=== PATIENT | female | born 1965 | race American Indian/Alaskan Native ===

== ENCOUNTER 2017-12-16 11:53 | Outpatient (CLI) | payer OTHER ==
--- NOTE | 2017-12-16 15:34 | Mammography Report ---
BILATERAL DIGITAL SCREENING MAMMOGRAM with CAD : 12/16/17 11:53:00 CLINICAL: Routine screening. COMPARISON:01/03/15 and 11/08/12 FINDINGS: The breasts are heterogeneously dense, which may obscure small masses. No mass, architectural distortion or suspicious calcifications. IMPRESSION: No mammographic evidence of malignancy. BI-RADS CATEGORY: 2 -- Benign RECOMMENDATION: Routine mammographic screening in one year. COMMENT: Patient follow-up letters are generated by our [employer] application.
== END 2017-12-16 11:54 | disposition home or self-care (01) ==
LOC: MAMMO 11:53
PROVIDERS: ATTEND Family Medicine
DX: Z12.31 Encounter for screening mammogram for malignant neoplasm of breast (principal)
CPT/HCPCS: 77067

== ENCOUNTER 2020-02-11 08:06 | Emergency (ER) | payer OTHER ==
--- NOTE | 2020-02-11 08:40 | Emergency Department Report ---
HPI - General Chief Complaint: Upper Respiratory Infection Time Seen by Provider: 02/11/20 08:15 - HPI HPI: This is a 54-year-old female presents to the emergency department from home with complaint of a 3-day history of intermittent fever and chills, 1 day history of a generalized headache, and a lingering cough that has been going on since July, almost 6 months. Patient says that she gets a tickle in the back of her throat which causes her to have to cough. She denies any chest pain, shortness of breath, nausea, vomiting or diaphoresis. The patient took some Tylenol last night for her headache, which was 10 out of 10 at that time, and it is currently 4 out of 10 in intensity. She denies any vision change, slurred speech, weakness, numbness or paresthesias, or any other neurological deficits. Patient has a history of myasthenia gravis. No recent travel or sick contacts at home. No known exposure to anyone with Covid 19. The patient had a negative COVID-19 test yesterday. ED Past Medical Hx - Past Medical History Additional medical history: myasthenia gravis - Surgical History Additional Surgical History: breast lymphnode Left side 20 yrs ago - Social History Smoking Status: Never Smoker Substance Use Type: None - Medications Home Medications: Home Medications Medication Instructions Recorded Confirmed Last Taken Type Prednisone 15 mg PO Q48HR 03/24/13 02/05/16 02/04/16 History Pyridostigmine [Mestinon] 120 mg PO Q6HR 03/24/13 02/05/16 02/04/16 History HYDROcodone/APAP 7.5-325 [[place] 1 each PO Q8HR PRN #10 tablet 02/05/16 Unknown Rx 7.5-325 mg TAB] Ibuprofen [Motrin] 800 mg PO Q8HR PRN #14 tablet 02/05/16 Unknown Rx Acetaminophen [Acetaminophen TAB] 650 mg PO Q6HR PRN #20 tablet 02/11/20 Unknown Rx Albuterol Mdi (or & Nicu Only) 2 puff IH QID PRN #8.5 gram 02/11/20 Unknown Rx [ProAir HFA Inhaler] Benzonatate [Tessalon Perles] 100 mg PO Q8HR PRN #20 capsule 02/11/20 Unknown Rx ED Review of Systems ROS: Stated complaint: FEVER/CHILLS/COUGH Other details as noted in HPI Comment: All other systems reviewed and negative Constitutional: chills, fever Eyes: denies: eye pain, vision change ENT: denies: ear pain, throat pain Respiratory: cough. denies: shortness of breath Cardiovascular: denies: chest pain, palpitations Gastrointestinal: denies: abdominal pain, vomiting Genitourinary: denies: dysuria, discharge Musculoskeletal: denies: joint swelling, arthralgia Skin: denies: rash, lesions Neurological: headache. denies: weakness, numbness, paresthesias Physical Exam - Physical Exam Vital Signs: Vital Signs 02/11/20 08:10 Temperature 102.9 F H Pulse Rate 131 H Respiratory 20 Rate Blood Pressure 118/78 O2 Sat by Pulse 96 Oximetry Physical Exam: GENERAL: The patient is well-developed well-nourished. HENT: Normocephalic. Atraumatic. Patient has moist mucous membranes. EYES: Extraocular motions are intact. NECK: Supple. Trachea is midline. CHEST/LUNGS: Mild tachypnea but no accessory muscle use. No cough heard during examination. There is no respiratory distress noted. HEART/CARDIOVASCULAR: There is mild tachycardia. ABDOMEN: Abdomen is soft. There is no abdominal distention. SKIN: Skin is warm and dry. NEURO: The patient is awake, alert, and oriented. The patient is cooperative. The patient has no focal neurologic deficits. Normal speech. MUSCULOSKELETAL: There is no tenderness or deformity. There is no limitation range of motion. ED Course Vital Signs 02/11/20 08:10 Temperature 102.9 F H Pulse Rate 131 H Respiratory 20 Rate Blood Pressure 118/78 O2 Sat by Pulse 96 Oximetry ED Medical Decision Making - Lab Data Result diagrams: 02/11/20 08:51 02/11/20 08:44 - EKG Data -: EKG Interpreted by Me EKG shows normal: sinus rhythm, axis, intervals, QRS complexes, ST-T waves Rate: tachycardia (102 bpm) - EKG Data When compared to previous EKG there are: previous EKG unavailable Interpretation: normal EKG - Radiology Data Radiology results: image reviewed interpreted by me: Chest x-ray does not show any acute process. There are no pleural effusions, obvious pneumonia and there is no pneumothorax. No significant cardiomegaly. - Medical Decision Making This patient presents to the emergency department with a complaint of a mild generalized headache, some intermittent fever and chills, and a lingering cough. She presents with tachycardia and a fever with a temperature of almost 103 F. For this reason the patient was made a person under investigation for Covid 19 and was placed in patient isolation and droplet precautions. She was given IV fluid resuscitation and acetaminophen. Chest x-ray did not show any pneumonia, pleural effusions, or any other acute process. Labs were unremarkable including CBC, metabolic panel, troponin and BNP. Patient was reevaluated multiple times over multiple hours and is feeling improved. Headache has resolved. The tachycardia and fever have resolved. The patient appears safe for discharge home at this time. She has been instructed to follow-up with a primary care physician and she was given COVID-19 precautions. The patient was placed in patient isolation and droplet precautions immediately upon arrival to the main emergency department. I wore full PPE gear including a surgical hat, goggles, N95 mask, surgical mask, gown, and double gloves for every encounter. Critical Care Time: No Critical care attestation.: If time is entered above; I have spent that time in minutes in the direct care of this critically ill patient, excluding procedure time. ED Disposition Clinical Impression: Viral syndrome Headache Qualifiers: Headache type: unspecified Headache chronicity pattern: unspecified pattern Intractability: not intractable Qualified Code(s): R51 - Headache Upper respiratory infection Qualifiers: URI type: unspecified URI Qualified Code(s): J06.9 - Acute upper respiratory infection, unspecified Disposition: TO HOME OR SELFCARE Is pt being admited?: No Condition: Stable Instructions: COVID-19, Fever in Adults (ED), Viral Syndrome (ED) Additional Instructions: Please follow-up with your primary care physician in the next few days. Return to the emergency department with any worsening of your symptoms, intractable fever, development of chest pain or shortness of breath, or with any acute distress. You can take Tylenol every 4-6 hours and ibuprofen every 6-8 hours, using the dosing on the back of the bottle, as needed for any fever or discomfort. Your symptoms together appear consistent with a nonspecific viral syndrome. Given the current pandemic, and despite a negative Covid test recently, COVID-19 cannot be ruled out at this time. Please isolate yourself from anyone who is elderly, immunocompromised or chronically ill. Wear a mask in public, but it is preferable that you isolate/self quarantine at home. Prescriptions: Acetaminophen [Acetaminophen TAB] 650 mg PO Q6HR PRN #20 tablet PRN Reason: Fever >101 Albuterol Mdi (or & Nicu Only) [ProAir HFA Inhaler] 2 puff IH QID PRN #8.5 gram PRN Reason: Shortness Of Breath Benzonatate [Tessalon Perles] 100 mg PO Q8HR PRN #20 capsule PRN Reason: Cough Referrals: TACOS CARRILLO MD [Primary Care Provider] - 2-3 Days Time of Disposition: 11:24
[2020-02-11] MEDS ORDERED: ACETAMINOPHEN 500 MG TAB PO ONE (08:46)
[2020-02-11] MEDS ORDERED: SODIUM CHLORIDE 0.9% 1000 ML 1,000 ML IV ONE (08:46)
[2020-02-11 09:02] LABS: Basophils % (Auto) 0.4 % (0.0-1.8); Eosinophils % (Auto) 0.2 % (0.0-4.3); Hematocrit 32.7 % (30.3-42.9); Hemoglobin 11.3 gm/dl (10.1-14.3); Lymphocytes # (Auto) 0.9 K/mm3 (1.2-5.4); Mean Corpuscular HGB Conc 34 % (30-34); Mean Corpuscular Volume 89 fl (79-97); Monocytes # (Auto) 1.2 K/mm3 (0.0-0.8); Monocytes % (Auto) 10.1 % (0.0-7.3); Platelet Count 209 K/mm3 (140-440); Red Blood Count 3.67 M/mm3 (3.65-5.03); Red Cell Distribution Width 13.2 % (13.2-15.2)
--- NOTE | 2020-02-11 09:05 | XRay Report ---
CHEST 1 VIEW INDICATION / CLINICAL INFORMATION: SOB. COMPARISON: None available. FINDINGS: SUPPORT DEVICES: None. HEART / MEDIASTINUM: Postoperative change with scattered surgical clips. No significant abnormality o f the cardiomediastinal silhouette. LUNGS / PLEURA: No significant pulmonary or pleural abnormality. No pneumothorax. ADDITIONAL FINDINGS: Postoperative change of median sternotomy. IMPRESSION: 1. No acute findings. Signer Name: Antoine Chen MD Signed: 02/11/2020 9:01 AM Workstation Name: [id number]
[2020-02-11 09:12] LABS: INR 1.1 (0.87-1.13)
[2020-02-11 09:22] LABS: Alanine Aminotransferase 13 units/L (7-56); Albumin 3.5 g/dL (3.9-5); BUN/Creatinine Ratio 11; Blood Urea Nitrogen 11 mg/dL (7-17); Calcium 9.6 mg/dL (8.4-10.2); Hemolysis Index 6
[2020-02-11 11:49] VITALS: BP 109/69
== END 2020-02-11 11:49 | disposition home or self-care (01) ==
LOC: ED 08:06
DX: J06.9 Acute upper respiratory infection, unspecified (principal); B34.9 Viral infection, unspecified; R51 Headache; Z98.890 Other specified postprocedural states; Z79.1 Long term (current) use of non-steroidal anti-inflammatories (NSAID); Z79.899 Other long term (current) drug therapy
CPT/HCPCS: 36415; 71045; 80053; 83880; 84484; 85025; 85610; 93005; 96360; 96361; 99284; J7030

== ENCOUNTER 2020-09-16 09:21 | Outpatient (CLI) | payer OTHER ==
--- NOTE | 2020-09-16 10:58 | Mammography Report ---
DIGITAL SCREENING MAMMOGRAM WITH CAD, 09/16/2020 INDICATION: Routine screening mammography. TECHNIQUE: Digital bilateral 2D mammography was obtained in the craniocaudal and mediolateral obliq ue projections. This examination was interpreted with the benefit of Computer-Aided Detection analysi s. COMPARISON: 12/16/2017. FINDINGS: Breast Density: The breasts are heterogeneously dense, which may obscure small masses. There is no evidence of dominant mass, suspicious calcifications or architectural distortion in eithe r breast. IMPRESSION: Follow up recommendation: Routine yearly BI-RADS Category 1: Negative. A "normal" or negative report should not discourage follow up or biopsy of a clinically significant f inding. A written summary of these findings will be mailed to the patient. The patient will be entered into a mammography reporting system which will generate a reminder letter for the patient's next appointmen t at the appropriate interval. The [employer] recommends yearly mammograms starting at age 40 and continuing as l tessa as a woman is in good health. Breast MRI is recommended for women with an approximate 20-25% or greater lifetime risk of breast cancer, including women with a strong family history of breast or ova gabrielle cancer or who have been treated for Hodgkin's disease. Signer Name: Derek Berrios MD Signed: 09/16/2020 10:54 AM Workstation Name: [email or web address]
== END 2020-09-16 09:22 | disposition home or self-care (01) ==
LOC: MAMMO 09:21
DX: Z12.31 Encounter for screening mammogram for malignant neoplasm of breast (principal)
CPT/HCPCS: 77067

== ENCOUNTER 2020-12-23 21:38 | Emergency (ER) | payer BC, OTHER ==
[2020-12-23 23:03] VITALS: BP 135/69
[2020-12-23 23:43] LABS: Alanine Aminotransferase 18 units/L (7-56); Albumin 4.4 g/dL (3.9-5); BUN/Creatinine Ratio 18; Blood Urea Nitrogen 16 mg/dL (7-17); Calcium 9.2 mg/dL (8.4-10.2); Hemolysis Index 9
[2020-12-23 23:51] LABS: Basophils # (Auto) 0.1 K/mm3 (0.0-0.1); Basophils % (Auto) 0.9 % (0.0-1.8); Eosinophils % (Auto) 0.2 % (0.0-4.3); Hematocrit 37.5 % (30.3-42.9); Lymphocytes # (Auto) 1.4 K/mm3 (1.2-5.4); Mean Corpuscular HGB Conc 32 % (30-34); Mean Corpuscular Volume 91 fl (79-97); Monocytes # (Auto) 0.7 K/mm3 (0.0-0.8); Monocytes % (Auto) 7.2 % (0.0-7.3); Platelet Count 272 K/mm3 (140-440); Red Blood Count 4.11 M/mm3 (3.65-5.03)
[2020-12-24 00:55] LABS: Bilirubin,Urine NEG (Negative); Blood,Urine MOD (Negative); Color,Urine Yellow (Yellow); Mucus,Urine FEW /HPF; Protein,Urine <15 mg/dL mg/dL (Negative); Urobilinogen,Urine < 2.0 mg/dL (<2.0)
--- NOTE | 2020-12-24 01:14 | Cat Scan Report ---
CT abdomen pelvis w con INDICATION / CLINICAL INFORMATION: R.L.Q. Abdominal Pain. TECHNIQUE: Axial CT images were obtained through the abdomen and pelvis after IV contrast. All CT sc ans at this location are performed using CT dose reduction for ALARA by means of automated exposure c ontrol. COMPARISON: None available. FINDINGS: LOWER CHEST: No significant abnormality LIVER: Bilobar hepatic cysts. GALLBLADDER/BILIARY TREE: No significant abnormality PANCREAS: No significant abnormality SPLEEN: No significant abnormality ADRENALS: No significant abnormality KIDNEYS / URETER: No significant abnormality URINARY BLADDER: No significant abnormality REPRODUCTIVE ORGANS: No significant abnormality STOMACH / BOWEL:Small to moderate hiatal hernia. Colonic diverticulosis without evidence of diverticu litis. Small bowel is normal in caliber. The appendix is normal in caliber. LYMPH NODES: No significant adenopathy. VASCULATURE: No significant abnormality. OTHER: No free air, free fluid, or focal fluid collection is identified. SKELETAL SYSTEM: No acute osseous findings. IMPRESSION: 1. No acute abnormality. Normal appendix. 2. Small to moderate hiatal hernia. 3. Colonic diverticula without evidence of diverticulitis. Signer Name: José Perez MD Signed: 12/24/2020 1:09 AM Workstation Name: [id number]
--- NOTE | 2020-12-24 01:33 | Emergency Department Report ---
ED General Adult HPI - General Chief complaint: Abdominal Pain Stated complaint: PAIN IN LOWER STOMACH Time Seen by Provider: 12/24/20 00:11 Source: patient Mode of arrival: Ambulatory Limitations: No Limitations - History of Present Illness Initial comments: 55-year-old female patient with history of myasthenia gravis presents to the emergency department with complaints of intermittent right lower quadrant abdominal pain for approximately 3 months. Patient was sent to the emergency department for emergent CT scan by her primary care provider due to concern for appendicitis. Patient has been taking Tylenol and Motrin for her abdominal pain. Last colonoscopy was 10 years ago. No history of prior abdominal surgeries. Denies fever, chills, nausea, vomiting, diarrhea, constipation, black/bloody stools, urinary symptoms. Denies all other complaints at this time. Severity scale (0 -10): 3 - Related Data Home Medications Medication Instructions Recorded Confirmed Last Taken Prednisone 15 mg PO Q48HR 03/24/13 02/05/16 02/04/16 Pyridostigmine [Mestinon] 120 mg PO Q6HR 03/24/13 02/05/16 02/04/16 Previous Rx's Medication Instructions Recorded Last Taken Type HYDROcodone/APAP 7.5-325 [[place] 1 each PO Q8HR PRN #10 tablet 02/05/16 Unknown Rx 7.5-325 mg TAB] Ibuprofen [Motrin] 800 mg PO Q8HR PRN #14 tablet 02/05/16 Unknown Rx Acetaminophen [Acetaminophen TAB] 650 mg PO Q6HR PRN #20 tablet 02/11/20 Unknown Rx Albuterol Mdi (or & Nicu Only) 2 puff IH QID PRN #8.5 gram 02/11/20 Unknown Rx [ProAir HFA Inhaler] Benzonatate [Tessalon Perles] 100 mg PO Q8HR PRN #20 capsule 02/11/20 Unknown Rx Dicyclomine [Bentyl] 20 mg PO QID #20 tablet 12/24/20 Unknown Rx Allergies Allergy/AdvReac Type Severity Reaction Status Date / Time No Known Allergies Allergy Verified 02/11/20 08:07 ED Review of Systems ROS: Stated complaint: PAIN IN LOWER STOMACH Other details as noted in HPI Other: GENERAL: Negative for fever, chills, weight change, anorexia, fatigue. ENT: Negative for ear pain, difficulty hearing, sore throat, nasal congestion, epistaxis. CARDIOVASCULAR: Negative for chest pain, palpitations, lower extremity swelling. PULMONARY: Negative for cough, dyspnea, wheezing, orthopnea, cyanosis. GASTROINTESTINAL: Positive for abdominal pain. MUSCULOSKELETAL: Negative for joint pain, joint swelling, myalgias, back pain, n roxane pain. NEUROLOGICAL: Negative for headache, seizure, syncope, paresthesias, weakness. INTEGUMENTARY: Negative for erythema, rash, diaphoresis, laceration, ecchymosis. HEMATOLOGICAL: Negative for hemoptysis, hematemesis, hematochezia, hematuria. PSYCHIATRIC: Negative for hallucinations, suicidal ideation, homicidal ideation, anxiety, depression. ED Past Medical Hx - Past Medical History Previous Medical History?: Yes Additional medical history: myasthenia gravis - Surgical History Past Surgical History?: Yes Additional Surgical History: Left knee. thyamus gland removal. breast lymphnode Left side 20 yrs ago - Social History Smoking Status: Never Smoker Substance Use Type: None - Medications Home Medications: Home Medications Medication Instructions Recorded Confirmed Last Taken Type Prednisone 15 mg PO Q48HR 03/24/13 02/05/16 02/04/16 History Pyridostigmine [Mestinon] 120 mg PO Q6HR 03/24/13 02/05/16 02/04/16 History HYDROcodone/APAP 7.5-325 [[place] 1 each PO Q8HR PRN #10 tablet 02/05/16 Unknown Rx 7.5-325 mg TAB] Ibuprofen [Motrin] 800 mg PO Q8HR PRN #14 tablet 02/05/16 Unknown Rx Acetaminophen [Acetaminophen TAB] 650 mg PO Q6HR PRN #20 tablet 02/11/20 Unknown Rx Albuterol Mdi (or & Nicu Only) 2 puff IH QID PRN #8.5 gram 02/11/20 Unknown Rx [ProAir HFA Inhaler] Benzonatate [Tessalon Perles] 100 mg PO Q8HR PRN #20 capsule 02/11/20 Unknown Rx Dicyclomine [Bentyl] 20 mg PO QID #20 tablet 12/24/20 Unknown Rx ED Physical Exam - General Limitations: No Limitations - Other Other exam information: General: Awake and alert. No acute distress. Head: Atraumatic, normocephalic. Eyes: EOMI. Pupils are equal and round. Normal sclera and conjunctiva. ENT: Oral mucosa is moist. Normal pharyngeal exam. Neck: Supple. No lymphadenopathy. Pulmonary: No respiratory distress. Clear to auscultation bilaterally. Cardiac: Regular rate and rhythm. Pulses are palpable and equal bilaterally. No lower extremity cyanosis or edema. Skin: Warm and dry. No rashes. Abdomen: Soft, non-tender, non-protuberant. No guarding, rigidity, or rebound. Bowel sounds are normal. No organomegaly or masses noted. Back: Normal alignment. No CVA tenderness. Extremities: Symmetrical. Full range of motion intact. Neurological: Alert and oriented, appropriately interactive, no focal deficits. Psych: Cooperative. Appropriate mood and affect. Speech is evenly metered. Thoughts are logically construed. ED Course Vital Signs 12/23/20 22:59 Temperature 98 F Pulse Rate 63 Respiratory 16 Rate Blood Pressure 135/69 [Right] O2 Sat by Pulse 100 Oximetry ED Medical Decision Making - Lab Data Result diagrams: 12/23/20 23:14 12/23/20 23:14 - Medical Decision Making Differential diagnosis including but not limited to: appendicitis, diverticulitis, cholecystitis, cholelithiasis, pancreatitis On reevaluation, patient remains stable. Repeat abdominal exam is benign. Labs within normal limits. CT of the abd/pelvis ordered by ornamental metal erector apprentice prior to medical screening exam shows hiatal hernia and colonic diverticulosis, no acute findings. Etiology of patient's ongoing abdominal pain remains uncertain however there is no clinical indication for further diagnostic work-up on an emergent basis at this time. She is currently asymptomatic and tolerating oral intake without difficulty. She is scheduled to see her playback operator later this week. Patient will be discharged home with a copy of her CT results and referred to ground hand for close outpatient follow-up, possibly colonoscopy. Patient expressed understanding and is agreeable to plan of care. Strict return precautions provided. Repeat exam is unremarkable and benign. History, exam, diagnostic testing, and current condition do not suggest worrisome pathology to warrant further testing, continued ED treatment, admission, or surgical evaluation at this point. Given the low probability of a significant medical illness, it would be more likely to result in harm than benefit to perform further testing at this stage. Discussed findings, presumptive diagnosis, need for follow-up and specific signs/symptoms that should prompt immediate return to the emergency department. Instructions were explained in detail to the patient in addition to giving written discharge information. Patient expressed understanding and was given the opportunity to ask questions, all of which were satisfactorily answered prior to discharge home. Critical care attestation.: If time is entered above; I have spent that time in minutes in the direct care of this critically ill patient, excluding procedure time. ED Disposition Clinical Impression: Chronic abdominal pain Disposition: DC- TO HOME OR SELFCARE Is pt being admited?: No Does the pt Need Aspirin: No Condition: Stable Instructions: Abdominal Pain (ED), Abdominal Pain, Adult, [id number] Additional Instructions: Continue Tylenol and Motrin as previously directed. Take Bentyl as directed for intestinal discomfort. Stay well-hydrated. Maintain a healthy, well-balanced diet. Follow-up with your primary care provider and playback operator as previously scheduled. Follow-up with ground hand this week. Call tomorrow to schedule an appointment. See referral information below. Return to the emergency department immediately for new or worsening symptoms. Prescriptions: Dicyclomine [Bentyl] 20 mg PO QID #20 tablet Referrals: [facility] [Provider Group] - 3-5 Days Time of Disposition: 01:33
== END 2020-12-24 01:50 | disposition home or self-care (01) ==
LOC: ED 21:38
DX: G89.29 Other chronic pain (principal); R10.31 Right lower quadrant pain; Z98.890 Other specified postprocedural states; Z79.899 Other long term (current) drug therapy
CPT/HCPCS: 36415; 74177; 80053; 81001; 83690; 85025; 99284; Q9967

== ENCOUNTER 2021-04-23 11:54 | Outpatient (CLI) | payer BC ==
[2021-04-23 12:45] LABS: Basophils % (Auto) 0.5 % (0.0-1.8); Eosinophils % (Auto) 0.7 % (0.0-4.3); Hematocrit 36.2 % (30.3-42.9); Lymphocytes # (Auto) 1.1 K/mm3 (1.2-5.4); Lymphocytes % (Auto) 14.6 % (13.4-35.0); Mean Corpuscular HGB Conc 33 % (30-34); Mean Corpuscular Volume 93 fl (79-97); Monocytes # (Auto) 0.4 K/mm3 (0.0-0.8); Monocytes % (Auto) 4.8 % (0.0-7.3); Platelet Count 255 K/mm3 (140-440); Red Blood Count 3.89 M/mm3 (3.65-5.03); Red Cell Distribution Width 12.6 % (13.2-15.2)
[2021-04-23 13:56] LABS: Alanine Aminotransferase 16 units/L (7-56); Albumin 4.4 g/dL (3.9-5); BUN/Creatinine Ratio 13; Blood Urea Nitrogen 13 mg/dL (7-17); Calcium 9.8 mg/dL (8.4-10.2); Hemolysis Index 8
[2021-04-23 13:59] LABS: Erythrocyte Sedimentation Rate 22 mm/Hr (0-20)
== END 2021-04-23 11:55 | disposition home or self-care (01) ==
LOC: LAB 11:54
PROVIDERS: ATTEND Specialist
DX: G70.01 Myasthenia gravis with (acute) exacerbation (principal)
CPT/HCPCS: 36415; 80053; 82306; 82607; 83036; 83921; 84443; 84479; 84480; 85025; 85652; 86038